=== PATIENT | female | born 1985 | race Caucasian/White ===

== ENCOUNTER 2018-09-03 16:51 | Emergency (ER) | payer BC ==
[~2018-09-03 16:51] MED LIST: Acidophilus La100 GM; FLUR100 PO; FOLI1 PO; Hair, Skin & N1 EACH PO; ISOT10 PO; MINO50 PO; NAPR550 PO; ORTHOTRICYCLINE; OXYACE5T PO; Percocet 5-3251 EACH PO
== END 2018-09-04 17:31 | disposition left against medical advice (07) ==
LOC: ER 16:51
DX: Z53.21 Procedure and treatment not carried out due to patient leaving prior to being seen by health care provider (principal); R10.9 Unspecified abdominal pain